=== PATIENT | female | born 1990 | race Caucasian/White ===

== ENCOUNTER 2016-06-28 23:35 | Inpatient (IN) | payer OTHER ==
[~2016-06-28] VITALS: Ht 157.5 cm; Wt 94.8 kg
[~2016-06-28 23:35] MED LIST: PREN1TAB73 PO
[2016-06-29] MEDS ORDERED: Hemorrhage Kit, Post Partum XX ONE (09:10)
[2016-06-29] MEDS ORDERED: Oxytocin 30 Units/500 mL LR 30 UNITS in IV Premix 1 EACH IV PRN (09:10)
[2016-06-29] MEDS ORDERED: Oxytocin 10 Unit/mL Inj IM PRN (09:10)
[2016-06-29] MEDS ORDERED: Carboprost 250 mCg/mL Inj IM PRN (09:10)
[2016-06-29] MEDS ORDERED: Misoprostol 25 mCg/0.25 Tablet VAGINAL ONE (09:10)
[2016-06-29] MEDS ORDERED: Sodium Chloride LOK Flush 10 mL Syringe IVFLUSH PRN (09:10)
[2016-06-29] MEDS ORDERED: Methylergonovine 0.2 mg/mL Inj IM PRN (09:10)
[2016-06-29 09:19] LABS: Mean Corpuscular Hemoglobin 28.8 pg (27.0-35.0); Mean Corpuscular Volume 88.9 fL (81-100)
[2016-06-29] MEDS: Lactated Ringer's 1,000 ML IV PRN (17:54)
[2016-06-30] MEDS ORDERED: Lactated Ringer's 1,000 ML IV SCH ×2 (00:44→16:25)
[2016-06-30] MEDS ORDERED: Oxytocin 30 Units/500 mL LR 30 UNITS in IV Premix 1 EACH IV PRN (00:45)
[2016-06-30] MEDS ORDERED: fentaNYL 2 mCg/mL-Bupivicaine 0.125% 100 mL Premix EPIDURAL ONE ×2 (02:43→11:28)
--- NOTE | 2016-06-30 02:45 | PCM.HPANE ---
Patient Data Surgeon Admitting Provider:Annette Chavarria MD Attending Provider:Annette Chavarria MD Primary Care Physician:Estuardo Other Provider:Jude Arizmendi Anesthesia Reason for Visit Induction INDUCTION Ht/WT & BMI Body Mass Index Allergies Uncoded Allergies: BEE STINGS (Allergy, Unknown, UNKNOWN, 08/28/14) Past Anesthesia History Anesthesia History: Denies:: Fam Anesthesia Reaction, Fam Malignant Hypertherm Diabetes History Hx Diabetes?: No MRSA MRSA: No Medications Reported Medications Vit/Iron Fumarate/FA ( Vitamin Tablet)1 Each Tablet1 Each PO DAILY 09/02/14 History History of ENT Problems?: Yes HEENT History: Denies:: Hearing Problem (HX OF OM R/T URI 2012) Hx of Heart Problems?: No Hx of Respiratory Problem?: No Respiratory History: Denies:: Use of C-PAP Machine Hx Neurologic Problems?: No Hx of GI Problems?: No Hx of Problems?: No Female Hx: Positive for:: Currently (missed ab=current prob) Skin History: Denies:: History Skin Disorders? Pressure Ulcers Hx Musculoskeletal Problems?: No Hx of Psycho/Social Problems?: No Hx Surgeries?: No Hx Any Other Health Problems?: No Other History: Positive for:: Hospitalization (CHILDBIRTH) Denies:: Cancer Thyroid Disease History Blood Transfusions: Denies:: Blood Transfusions Hx Diabetes: No Hx Alcohol Use: NoHx Substance Use: No Smoking Status: Never Smoker Stop/Bang Risk Assessment Category Category 1A: Patient has history of documented sleep apnea, and HAS NOT received any narcotic, sedative or anesthesia administration during this stay. Category 1B: Patient has history of documented sleep apnea, and HAS received any narcotic , sedative or anesthesia administration during this stay Category 2: Patient has SUSPECTED Obstructive Sleep Apnea, and HAS received any narcotic , sedative or anesthesia administration during this stay. Category 3: Patient has SUSPECTED Obstructive Sleep Apnea and HAS NOT received narcotic, sedative or anesthesia administration during this stay. Category 4: Outpatient in Procedural Areas with known sleep apnea or who screen positive for High Risk via the STOP/BANG questionnaire. Exam Exam General Appearance: Alert, Oriented X3, Cooperative, Moderate Distress HEENT/AIRWAY: MP 2, Neck Movement (from), Mouth Opening (wnl) Heart: Exam Unremarkable Meds/Labs/Diagnostics Admission Meds Current Medications Misoprostol (Cytotec) 25 mcg ONCE ONCE VAGINAL Last administered on 06/29/16t 09:55; Start 06/29/16 at 09:10; Stop 06/29/16 at 09:33; Status DC Labs Test 06/29/16 08:00 White Blood Count 9.9th/mm3 (3.8-10.1) Red Blood Count 3.79mil/mm3 (3.90-5.20) Hemoglobin 10.9g/dL (12.0-15.6) Hematocrit 33.7% (35.0-46.0) Mean Corpuscular Volume 88.9fL (81-100) Mean Corpuscular Hemoglobin 28.8pg (27.0-35.0) Mean Corpuscular Hemoglobin Concent 32.3% (32.0-37.0) Red Cell Distribution Width 14.9% (12.3-15.4) Platelet Count 197bil/L (150-400) Plan Impression Patient chart reviewed, patient interviewed and anesthestic plan with risks, benefits, and alternatives discussed, and informed consent obtained. NPO Status: 09/01/14 1250 ASA Physical Status: ASA2 Mod Systemic Disease Anesthetic Plan: Epidural Bene/Risks/Altern/Consents: Yes HP Complete Prior to Induction: Yes Narciso Carr MD Jun 30, 2016 02:45
--- NOTE | 2016-06-30 03:17 | PCM.ANEP1 ---
Post Anesthesia Phase 1 PACU Phase 1 Assessment Anesthetic Administered: Epidural Level of Alertness: Awake, talking GONZALES's with Equal Strength: Yes Pain: No Nausea or Vomiting: No Oxygen Delivery: Room Air Lungs: Normal Air Movement Narciso Carr MD Jun 30, 2016 03:17
--- NOTE | 2016-06-30 08:04 | PCM.PNOBIP ---
Subjective Date of Service Jun 30, 2016 Delivery plan: Spontaneous Vaginal Delivery Visit History 25 y/o [id number] female at 39w6d who presented to [facility] for IOL due to LGA with the most recent EFW in the 91th percentile. Received Cytotec on 06/29/16 at 09:55, cervical ripening balloon at 17:20 and out at 21:15 with SROM at 21:23. Pitocin started at 01:00. Now 5cm dilated, 80% effaced and at - 2station. status is reassuring, category 1 tracing. Maternal Date/Time of ROM: SROM 06/29/16 21:23 Pain Management: Epidural Gastrointestinal: No N/V Activity: Ambulating Independently Labs Blood type-O negative Antibody screen- negative GBS- negative Rubella- nonimmune Varicella- immune RPR-nonreactive HBsAg negative HIV screen negative GC/CT negative HbA1c 5.5 T4 0.97 Hgb/Hct 12.7/37.8 Group B Strep Results: Negative Rubella: Non-Immune Blood Type: O RH Type: Negative Labs Laboratory Tests 06/29/16 08:00: White Blood Count 9.9, Red Blood Count 3.79, Hemoglobin 10.9, Hematocrit 33.7, Mean Corpuscular Volume 88.9, Mean Corpuscular Hemoglobin 28.8, Mean Corpuscular Hemoglobin Concent 32.3, Red Cell Distribution Width 14.9, Platelet Count 197 Exam Vital Signs Vital Signs Vital Signs Date Time Temp Pulse Resp B/P Pulse Ox O2 Delivery O2 Flow Rate FiO2 06/30/16 03:17 Room Air Contraction frequency in minutes: 2.5-4.5 MVUs: external monitor Vital Signs: VS reviewed, stable Heart Tracings Heart Tones Baseline 130 bpm Heart Rate Variability: Moderate Heart Rate Accelleration: Present Heart Rate Deceleration: Absent Heart Rate Category: I Tocometry/IUPC Contraction frequency in minutes: 2.5-4.5 Sterile Vaginal Exam Cervical Dilation: 5 cms Cervical Effacement: 80 % Station: -2 Exam Extremities: Edema 1+ Lungs: Normal Air Movement Heart: Exam Unremarkable General: Alert, Oriented X3, Cooperative, Moderate Distress OB Intrapartum Assessment/Plan Assessment 25 y/o [id number] female who presented to [facility] for IOL at 39w6d for LGA. Pitocin started at 01:00. Now 5cm dilated, 80% effaced and at -2station. status is reassuring. Intrapartum plan: Continue expected management Intrapartum Pain Management: Epidural Pain Evaluation: Adequate Pain Control Post plan: Continue routine post care Attending Statement The patient was seen and examined together with Shantelle Wellington DO on 2016 and I agree with the history, exam and plan as outlined in the note above. Shantelle Wellington DO Jun 30, 2016 07:21 Mary Jo Wiley MD Jul 08, 2016 13:39
[2016-06-30] MEDS: Lactated Ringer's 1,000 ML IV PRN (13:25)
[2016-06-30] MEDS ORDERED: HYDROcodone-APAP 5-325 mg Tablet PO PRN (16:25)
[2016-06-30] MEDS ORDERED: Benzocaine (Dermoplast) 20% 60 Gm Spray TOPICAL PRN (16:25)
[2016-06-30] MEDS ORDERED: Measles-Mumps-Rubella Vaccine 0.5 mL Inj SUBQ ONE (16:25)
[2016-06-30] MEDS ORDERED: LANOlin HPA 7 Gm Ointment TOPICAL PRN (16:25)
[2016-06-30] MEDS ORDERED: Oxytocin 10 Unit/mL Inj IM PRN (16:25)
[2016-06-30] MEDS ORDERED: Methylergonovine 0.2 mg/mL Inj IM PRN (16:25)
[2016-06-30] MEDS ORDERED: Carboprost 250 mCg/mL Inj IM PRN (16:25)
[2016-06-30] MEDS ORDERED: Witch Hazel-Glycerin Pads TOPICAL PRN (16:25)
[2016-06-30] MEDS ORDERED: Hemorrhage Kit, Post Partum XX ONE (16:25)
[2016-06-30] MEDS: Ascorbic Acid 500 mg Tablet PO SCH (17:30)
--- NOTE | 2016-06-30 19:41 | PCM.OBVAG ---
Vaginal Delivery Date of Service Jun 30, 2016 Pre Operative Diagnosis Pre Operative Diagnosis Term LGA Post Operative Diagnosis Post Operative Diagnosis Vaginal Delivery at term gestation LGA Procedure Obstetical Procedure: Normal Spontaneous Vaginal Delivery (IOL) Trench Digger/Security Engineer Provider and Security Engineer: Dr. Mary Jo Wiley MD Attedning Dr. Jae Serra DO PGY2 Indication for Procedure Induction: Induction of labor, Other (LGA) Findings Obstetrical Findings: (Female), Cord (3 Vessel), Weight ( 4729 grams), Presentation (SO), 1 minute (6), 5 minutes (9), Placenta ( Intact/Normal), Perineal Laceration (Superficial R labial.) Analgesia/Medications Obstetrical Anesthesia: Epidural Procedure Details Procedure Details Patient is an 25yo now who presented to Labor and Delivery on for induction of labor. She desired an epidural and one was placed. She is a GBS negative. She made normal progress through labor and was found to be complete about 13:46. Her membranes were ruptured and there was moderate amount of meconium. Neonatology was called and was present for the . Procedure: A sterile drape was placed under the patient's buttocks and with expulsive efforts, she delivered head over an intact perineum. No nuchal cord. The rest of the body was delivered and there was a gush of heavy/thick meconium. Immediately the cord was clamped, cut and clamped and the infant was passed to the addressograph operator. The infant was delivered at 16:09. The placenta then delivered spontaneously intact at 16:17 with a three vessel cord. Uterus firmed with manual external massage. The canal was examined and there was a superficial R labial laceration not in need of repair. Sponge and instrument counts were correct x2 at the close of the procedure. The patient and infant tolerated the procedure well and pt is stable in her room. Blood Loss & Administration Estimated Blood Loss: 150 Post Procedure Plan Post Procedure Plan Routine post care. Encourage breast feeding and early ambulation. Oral analgesics as needed. Post delivery Condition: Mom stable Attending Statement I was present for the entire procedure and agree with the above documentation with some minor changes as noted above. Jae Serra DO Jun 30, 2016 19:15 Mary Jo Wiley MD Jul 08, 2016 13:43
[2016-07-01 07:19] LABS: Mean Corpuscular Hemoglobin 28.6 pg (27.0-35.0); Mean Corpuscular Volume 88.4 fL (81-100)
[2016-07-01] MEDS ORDERED: Measles-Mumps-Rubella Vaccine 0.5 mL Inj SUBQ ONE (07:25)
--- NOTE | 2016-07-01 07:44 | PCM.DIMED ---
Discharge Instructions Date of Service Jul 01, 2016 Dates of Hospitalization Jun 29, 2016 at 07:17 Discharge Diagnosis Discharge Diagnosis Term gestation Induction of labor, elective Fetus large for gestational age Medication Instructions Vicodin 5/325 mg, take 1 tab q4-6h PO PRN for pain, #40 Colace 100 mg BID PO PRN for constipation #80 Ferrous sulfate 325 mg PO daily, #90 Vitamin C 500 mg PO daily, #90. Take with iron Ibuprofen 800mg, take 1 tab q8h PO PRN for pain #60 Diet No restrictions Activity Other (pelvic rest for 6 weeks, balance rest and activity as pain and energy allow.) Call your provider Fever or Chills, Shortness of breath, Bleeding, Chest pain, Vomitting, Excessive diarrhea, Weakness (unilateral) Patient Instructions Continue your vitamin. Please take the iron and vitamin c together for your anemia. Do not take more pain medication (Vicodin) than is necessary -- less is better. Vicodin pills have Tylenol (acetaminophen) in them at 325mg per pill. Do not take Tylenol in addition to your pain medication but should take one or the other. Both iron and Vicodin can give you constipation so you have also been given a prescription for docusate to keep you regular. Be [facility] to [facility] at [facility]. Pelvic rest for 6 weeks (nothing per vagina including intercourse, tampons) If you have a fever greater than 100.4, please call [facility]. There is always someone professional housing consultant to talk to. If you have an increase in bleeding, call [facility]. If you have a lot of bleeding suddenly, especially if you have symptoms of dizziness & weakness with it, get emergency help. When you see [facility] in two weeks, you will be informed of the results of all the labs. If you start experiencing extreme depression, especially if you feel that you are a danger to yourself or your family, seek emergency help. You have been through a lot -- BE SURE TO TAKE CARE OF YOURSELF. Follow-up plan [facility] 6 weeks. He may contact our office to be seen sooner if you are having any concerns, or symptoms as above. Jae Serra DO Jul 01, 2016 07:44
[2016-07-01] MEDS ORDERED: HYDR-4003 PO (07:45)
[2016-07-01] MEDS ORDERED: Ascorbic Acid PO (07:45)
[2016-07-01] MEDS ORDERED: DOCU-41 PO (07:45)
[2016-07-01] MEDS ORDERED: FERR-74 PO (07:45)
[2016-07-01] MEDS ORDERED: IBUP800T28 PO (07:45)
[2016-07-01] MEDS: Ascorbic Acid 500 mg Tablet PO SCH (08:06)
--- NOTE | 2016-07-01 10:07 | PCM.DC.OB ---
Obstetrical Discharge Summary Date of Service Jul 01, 2016 Date of hospital admission Jun 29, 2016 at 7:17 am Date of Discharge: Jul 01, 2016 Providers Admitting Physician: Annette Chavarria MD Primary Care Physician: Estuardo Attending Physician: Annette Chavarria MD Diagnosis at Time of Discharge Term Large for gestational age Normal spontaneous vaginal delivery status post induction and augmentation Superficial labial tear. Problems: Brief History and Physical: 25 y/o E2E8-8-3-9 female at [facility] at 39w6d for induction of labor due to LGA. The most recent EFW in the 91th percentile. Received Cytotec on 06/29/16 at 09:55, cervical ripening balloon at 17:20 and out at 21:15 with SROM at 21:23. Pitocin started at 01:00. She progressed through labor, and heart tracing remained category 1. course was unremarkable, mother is negative Rh. Physical exam on day of discharge General: Laying in bed, no apparent distress. Breast-feeding . HEENT: Normocephalic, atraumatic, EOMI grossly, Cardiovascular: Regular rate and rhythm, no clicks murmurs rubs, peripheral pulses 2/4 equal bilaterally Pulmonary: Clear to auscultation bilaterally, no W/R/R. Abdominal: Soft to palpation, bowel sounds present 4, fundus is appreciated 2 fingerbreadths above the umbilicus, mild tenderness to palpation. Extremities: No edema appreciated. No tenderness, asymmetry. Neuro: Neurologically grossly intact, MSK: Gait is normal, able to move extremities on their own volition. Hospital Course: Per delivery note Presented to Labor and Delivery on 06/29/16for induction of labor. She desired an epidural and one was placed. She is a GBS negative. She made normal progress through labor and was found to be complete about 13:46. Her membranes were ruptured and there was moderate amount of meconium. Neonatology was called and was present for the . FHR was baseline 140-150s with some early and variable decelerations A sterile drape was placed under the patient's buttocks and with expulsive efforts, she delivered head over an intact perineum. No nuchal cord. The rest of the body was delivered and there was a gush of heavy/thick meconium. Immediately the cord was clamped, cut and clamped and the infant was passed to the radio station manager. The infant was delivered at 16:09. The placenta then delivered spontaneously intact at 16:17 with a three vessel cord. Uterus firmed with manual external massage. The canal was examined and there was a superficial R labial laceration not in need of repair. Sponge and instrument counts were correct x2 at the close of the procedure. The patient and infant tolerated the procedure well and pt is stable in her room. On day of discharge patient stated she was ready to go home, was able to ambulate independently, was voiding and passing flatus appropriately. Pain was under control with oral analgesics and was breast-feeding child. ([Ascorbic Acid]) 500 MG TABLET 500 MG PO BIDWM Prescribed by: BEATRIZ DELGADO DO Docusate Sodium (Colace) 100 Mg Capsule 100 MG PO DAILY Prescribed by: BEATRIZ DELGADO DO Ferrous Sulfate (Feosol) 325 Mg Tablet 325 MG PO BIDWM Prescribed by: BEATRIZ DELGADO DO Hydrocodone-Acetaminophen 5-325 mg (Hydrocodone-Acetaminophen 5-325 mg) 1 Each Tablet 1-2 TABLET PO Q4H PRN PRN For Pain Prescribed by: BEATRIZ DELGADO DO Ibuprofen (Ibuprofen) 800 Mg Tablet 800 MG PO Q6H PRN PRN For Pain Prescribed by: BEATRIZ DELGADO DO Vit/Iron Fumarate/FA ( Vitamin Tablet) 1 Each Tablet 1 EACH PO DAILY (Reported) Last Taken: Unknown Dose on 06/28/16 Discharge Medications: Vicodin 5/325 mg, take 1 tab q4-6h PO PRN for pain, #40 Colace 100 mg BID PO PRN for constipation #80 Ferrous sulfate 325 mg PO daily, #90 Vitamin C 500 mg PO daily, #90. Take with iron Ibuprofen 800mg, take 1 tab q8h PO PRN for pain #60 Disposition Home, with family Follow-up plan [facility] in 6 weeks Discharge Diet: No restrictions Discharge Activity-General: Pelvic Rest for 6 weeks, Be up and about, Balance rest and activity, Activity as pain allows, Activity as energy allows, No lifting >15 pounds for 2 weeks Patient instructions Continue your vitamin. Please take the iron and vitamin c together for your anemia. Do not take more pain medication (Vicodin) than is necessary -- less is better. Vicodin pills have Tylenol (acetaminophen) in them at 325mg per pill. Do not take Tylenol in addition to your pain medication but should take one or the other. Both iron and Vicodin can give you constipation so you have also been given a prescription for docusate to keep you regular. Be sure to follow up in 6 weeks at [facility]. Pelvic rest for 6 weeks (nothing per vagina including intercourse, tampons) If you have a fever greater than 100.4, please call [facility]. There is always someone electronic warfare linguist to talk to. If you have an increase in bleeding, call [facility]. If you have a lot of bleeding suddenly, especially if you have symptoms of dizziness & weakness with it, get emergency help. When you see [facility] in two weeks, you will be informed of the results of all the labs. If you start experiencing extreme depression, especially if you feel that you are a danger to yourself or your family, seek emergency help. You have been through a lot -- BE SURE TO TAKE CARE OF YOURSELF. Beatriz Serra DO Jul 01, 2016 10:07 am
[2016-07-01 10:10] VITALS: BP 133/88; PULSE 89; RESP 18
--- NOTE | 2016-08-23 10:48 | HP ---
[address] [address] HISTORY AND PHYSICAL PATIENT: CECILLE RASMUSSEN : 1990 MR#: [id number] ADMIT: 06/29/2016 JOB ID: [id number] HISTORY OF PRESENT ILLNESS: The patient is a 25-year-old, 4, para 1-0-2-2, at 39 weeks and 5 days, presents to the [facility] for elective induction of labor. The patient was found to have LGA infant in the most recent ultrasound, with estimated weight in 91st percentile. The patient has no complaints, she has mild irregular contractions, the heart rate tracing is reactive, category 1. PHYSICAL EXAMINATION: Vital signs: Temperature 36.7, pulse 80, respiratory rate 18, blood pressure 118/68. HEENT: PERRLA. Chest: Clear bilaterally. No adventitious sounds. Cardiovascular: Regular rate and rhythm. The abdomen is gravid, fundal height measuring 3-4 cm above the estimated gestational age, it is nontender and nondistended. The cervical exam showed cervix 1-2 cm dilated, 50% effaced, station -3. LABORATORIES: WBC count 9.9, hemoglobin 10.9, hematocrit 33.7, platelets 197. heart rate tracing is reactive, moderate variability with accelerations. Baseline 130 beats per minute. care was relatively uncomplicated, labs were reviewed. She is blood group and type 0-. Antibody is negative. Group B strep negative. Rubella immune, varicella immune. FAMILY HISTORY: Noncontributory. SOCIAL HISTORY: The patient denies smoking, alcohol, or illicit recreational drug use. ASSESSMENT/PLAN: 1. A 25-year-old, 4 para 1-0-2-1, who presents for induction of labor at 39 weeks and 6 days. 2. History of large for gestational age in current on most recent ultrasound. The induction plan was discussed with the patient, and informed consent was obtained. We discussed cervical ripening with Cytotec and Cervidil. The patient would like to have an epidural, and anesthesiologist will be called when it is needed. IV hydration started with lactated Ringer at 125 mL/h. Labs were sent. We will anticipate spontaneous vaginal delivery.
== END 2016-07-01 11:00 | disposition home or self-care (01) | DRG 775 ==
LOC: FBC 06-29 07:17
PROVIDERS: ADMIT Obstetrics & Gynecology; ATTEND Obstetrics & Gynecology
PROC: 3E0P7GC Introduction of Other Therapeutic Substance into Female Reproductive, Via Natural or Artificial Opening (ICD-10-PCS; 2016-06-29)
PROC: 10E0XZZ Delivery of Products of Conception, External Approach (ICD-10-PCS; principal; 2016-06-30)
DX: O36.63X0 Maternal care for excessive fetal growth, third trimester, not applicable or unspecified (principal); Z3A.39 39 weeks gestation of pregnancy; Z37.0 Single live birth; O77.0 Labor and delivery complicated by meconium in amniotic fluid